=== PATIENT | female | born 1995 | race Hispanic/Latino ===

== ENCOUNTER 2017-04-06 11:01 | Emergency (ER) | payer MEDICAID, OTHER ==
--- NOTE | 2017-04-06 12:57 | CT ---
CT BRAIN: Date: 04/06/17 PROVIDED CLINICAL HISTORY: Head pain status post injury. FINDINGS: Ventricular system appears normal in size and morphology. There is no evidence for intracranial hemor rhage or mass effect. There is partial opacification of the sphenoid sinus. The extracranial soft tis sues and osseous structures demonstrate an otherwise unremarkable CT appearance. IMPRESSION: No evidence for intracranial hemorrhage or mass effect. POS: [facility]
== END 2017-04-06 13:20 | disposition home or self-care (01) ==
LOC: ERS 11:01
DX: S06.0X0A Concussion without loss of consciousness, initial encounter (principal); S00.03XA Contusion of scalp, initial encounter; Y04.0XXA Assault by unarmed brawl or fight, initial encounter
CPT/HCPCS: 70450

== ENCOUNTER 2018-04-01 05:30 | Inpatient (IN) | payer OTHER ==
[2018-04-01] MEDS ORDERED: Ibuprofen 800 MG TAB PO PRN (06:13)
[2018-04-01] MEDS ORDERED: Butorphanol Tartrate 1 MG/ML VIAL SLOW IVP PRN (06:13)
[2018-04-01] MEDS ORDERED: Carboprost 250 MCG/ML AMP IM PRN (06:13)
[2018-04-01] MEDS ORDERED: NS w/ Oxytocin 10 units 500 ML IV SCH ×2 (06:13)
[2018-04-01] MEDS ORDERED: Methylergonovine 0.2 MG/ML VIAL IM PRN (06:13)
[2018-04-01] MEDS ORDERED: Lidocaine 1% (PF) 30 ML VIAL SC PRN (06:13)
[2018-04-01] MEDS ORDERED: HYDROcodone/Acetaminophen 5/325 mg Tablet PO PRN ×3 (06:13→14:47)
[2018-04-01] MEDS ORDERED: Diphenoxylate HCl/Atropine Tablet PO PRN (06:13)
[2018-04-01] MEDS ORDERED: Misoprostol 200 MCG TAB PR PRN (06:13)
[2018-04-01] MEDS ORDERED: Ondansetron PF 4 MG/2 ML Vial IVP PRN ×2 (06:13→14:47)
[2018-04-01 06:21] VITALS: BMI 30.4
[2018-04-01] MEDS ORDERED: NS w/ Oxytocin 10 units 500 ML ONE (06:38)
[2018-04-01 06:45] LABS: Hemoglobin 12.7 g/dL (12.0-16.0); Mean Corpuscular HGB CONC 33.6 g/dL (32.0-36.0); Mean Corpuscular Hemoglobin 29.4 pg (27.0-31.0); Mean Corpuscular Volume 87.6 fL (78.0-98.0); Mean Platelet Volume 10.2 fL (7.4-10.4); Platelet Count 190 thou/uL (130-400); Red Blood Cell (RBC) Count 4.31 mill/uL (4.20-5.40); White Blood Cell (WBC) Count 8.4 thou/uL (4.8-10.8)
[2018-04-01] MEDS: Lactated Ringer's 1,000 ML IV SCH ×2 (06:54→16:49)
[2018-04-01 07:22] LABS: HBSAg Index 0.25 S/CO (0-0.99); Hep B Surf Ag Non-Reactive S/CO (NonReactive); Syphilis Antibody Nonreactive (Nonreactive); Syphilis Antibody Index 0.03 S/CO (<1.00 Non-Reactive)
[2018-04-01] MEDS: NS / Oxytocin 40 units/1000ml 1,000 ML IV PRN ×2 (11:59→13:12)
[2018-04-01] MEDS ORDERED: Bisacodyl 10 MG SUPP PR PRN (14:47)
[2018-04-01] MEDS ORDERED: Lanolin Ointment 7 GM TUBE TOP PRN (14:47)
[2018-04-01] MEDS ORDERED: NS / Oxytocin 40 units/1000ml 1,000 ML IV SCH (14:47)
[2018-04-01] MEDS ORDERED: Milk Of Magnesia 30 ML UDCUP PO PRN (14:47)
[2018-04-01] MEDS: Ferrous Sulfate 325 MG TAB PO SCH (16:49)
[2018-04-01] MEDS: Ibuprofen 800 MG TAB PO SCH (21:02)
[2018-04-01] MEDS: Docusate Calcium (SURFAK) 240 MG CAP PO SCH (21:02)
[2018-04-02] MEDS: Ibuprofen 800 MG TAB PO SCH ×2 (05:00→13:56)
[2018-04-02 06:04] LABS: Hemoglobin 11.3 g/dL (12.0-16.0); Mean Corpuscular Hemoglobin 29.3 pg (27.0-31.0); Mean Corpuscular Volume 88.7 fL (78.0-98.0); Platelet Count 162 thou/uL (130-400); RBC Distribution Width 13.2 % (11.5-14.5); Red Blood Cell (RBC) Count 3.85 mill/uL (4.20-5.40); White Blood Cell (WBC) Count 7.5 thou/uL (4.8-10.8)
[2018-04-02 08:17] VITALS: BP 112/74; TEMP 98.4
[2018-04-02] MEDS: Ferrous Sulfate 325 MG TAB PO SCH ×2 (08:19→15:27)
[2018-04-02] MEDS: Docusate Calcium (SURFAK) 240 MG CAP PO SCH (08:36)
[2018-04-02] MEDS ORDERED: Prenatal Vitamin 1 TAB PO SCH (09:00)
== END 2018-04-02 15:50 | disposition home or self-care (01) | DRG 807 ==
LOC: L&D 05:58 → 3SW 14:57
PROVIDERS: ADMIT Family Medicine; ATTEND Family Medicine
PROC: 10E0XZZ Delivery of Products of Conception, External Approach (ICD-10-PCS; principal; 2018-04-01)
PROC: 10907ZC Drainage of Amniotic Fluid, Therapeutic from Products of Conception, Via Natural or Artificial Opening (ICD-10-PCS; 2018-04-01)
PROC: 3E033VJ Introduction of Other Hormone into Peripheral Vein, Percutaneous Approach (ICD-10-PCS; 2018-04-01)
DX: O80 Encounter for full-term uncomplicated delivery (principal); Z37.0 Single live birth; Z3A.39 39 weeks gestation of pregnancy
CPT/HCPCS: 36415; 85027; 86780; 86850; 86900; 86901; 87340; J2001

== ENCOUNTER 2021-03-06 23:47 | Emergency (ER) | payer OTHER ==
[2021-03-07] MEDS ORDERED: Lorazepam 2 MG/ML VIAL ONE (00:04)
== END 2021-03-07 00:35 | disposition home or self-care (01) ==
LOC: ERS 23:47
DX: F12.90 Cannabis use, unspecified, uncomplicated (principal); R00.0 Tachycardia, unspecified; E05.90 Thyrotoxicosis, unspecified without thyrotoxic crisis or storm
CPT/HCPCS: 96374; J2060